=== PATIENT | female | born 1945 | race Caucasian/White ===

== ENCOUNTER → 2017-01-21 | Outpatient (CLI) | payer OTHER, BC ==
[~2017-01-21] VITALS: Ht 157.5 cm; Wt 77.1 kg
[~2017-01-21] MED LIST: ADULT LOW DOSE81 MG PO; AMBIEN 10 MG TA10 MG PO; ASPIRIN EC325 M1; ATIVAN0.5 MG PO; CHILDREN'S ASPI81 MG PO; DETROL LA4 MG PO; DETROL2 MG; EFFEXOR XR150 MG PO; EFFEXOR XR75 MG PO; HYDROCODON-ACE1 EAC7 PO; LIPITOR40 MG PO; LOPRESSOR25 PO; METOPROLOL TART25 MG PO; MOBIC7.5 M1; NITROSTAT0.4 MG SL; NORCO 10-325 T1 EACH PO; PAIN & FEVER325 MG PO; PLAVIX 75 MG TA75 M1 PO; PRILOSEC 20 MG20 MG PO; PRINIVIL10 MG PO; PRINIVIL20 MG; RANEXA500 MG PO; WELLBUTRIN SR150 MG PO; ZOLPIDEM TARTRA10 MG PO
--- NOTE | ~2017-01-21 | EKG ---
[address] [address] ELECTROCARDIOGRAM REPORT Name: LOYDA WEEKS Room #: REG CLI [facility]#: [id number] Admission: 01/21/17 Attend Phys: Manan Hall MD, FA Discharge: Date of : 49 Report #: [id number] THIS REPORT FOR: //name// [facility] Test Date: 2017-01-21 Test Time: 07:19:24 Pat Name: LOYDA WEEKS Department: Room: Gender: F Meat Service Team Member: Rohit RIVERA : 1945 Requested By: Manan Hall Order Number: [id number] MD: Petr Cooper Measurements Intervals [place] Rate: 72 P: 59 NV: 162 QRS: -4 QRSD: 117 T: 50 QT: 413 QTc: 453 Interpretive Statements Sinus rhythm No significant abnormality No previous ECG available for comparison Electronically Signed On 01-22-2017 7:48:22 CDT by Petr Cooper [email or web address] <ELECTRONICALLY SIGNED> By: Petr Cooper MD, [facility] 01/22/17 0748 0719 8 Petr Cooper MD, FACC /EPI
[2017-01-21 07:05] VITALS: BP 162/88
[2017-01-21 07:20] LABS: HEMATOCRIT 36.2 % (37.0-47.0); HEMOGLOBIN 11.9 gm/dL (12.0-15.0); MCH 30.9 pg (26.0-34.0); MCV 93.6 fL (80.0-100.0); RBC 3.87 mil/uL (4.20-5.00); RDW 14.3 % (10.5-14.5); WBC 6.5 thou/uL (4.0-11.0)
[2017-01-21 07:28] LABS: ANION GAP 12 mmol/L (7-16); BUN 19 mg/dL (7-18); CHLORIDE 104 mmol/L (98-107); CO2 24 mmol/L (21-32); GLUCOSE 102 mg/dL (74-106); POTASSIUM 3.8 mmol/L (3.5-5.1); SODIUM 140 mmol/L (136-145)
[2017-01-21 07:33] LABS: CHOLESTEROL 170 mg/dL (<200); HDL CHOLESTEROL 55 mg/dL (>40); LDL CHOLESTEROL 95 mg/dL (<100); TC:HDL 3.1 Ratio (Not establshd); TRIGLYCERIDE 103 mg/dL (<150); VLDL 21 mg/dL (<40)
== END ==
LOC: CATH 06:33 → EDSTATUS 08:05 → CATH 08:06
PROVIDERS: Internal Medicine Cardiovascular Disease
DX: Z53.8 Procedure and treatment not carried out for other reasons (principal)

== ENCOUNTER → 2017-01-22 | Outpatient (CLI) | payer OTHER, BC ==
--- NOTE | ~2017-01-22 | DSS ---
[facility] [place] [address] SHORT STAY SUMMARY Name: LOYDA WEEKS Room #: REG [place].#: [id number] Admission: 01/22/17 Attend Phys: Manan Hall MD, FA Discharge: Date of : 49 Report #: [id number] THIS REPORT FOR: //name// CC: Kulwant Hall DATE OF ADMISSION: 01/22/2017 DATA OF DISCHARGE: 01/22/2017 DISCHARGE DIAGNOSES: 1. Angina pectoris. 2. Coronary artery disease. 3. Hypertension. 4. Hyperlipidemia. CONSULTANTS: None. PROCEDURES: Left heart catheterization via the right radial artery. PRIMARY CARE PHYSICIAN: Kulwant Prescott M.D. HISTORY OF PRESENT ILLNESS: The patient is a 71-year-old white female who was brought to the outpatient department to undergo repeat cardiac catheterization. The patient initially had a stent placed in her LAD at [facility] in 2007. She then presented to [facility] in 2013 with chest pain. I placed a stent in her distal circumflex artery. Nuclear stress test in 2015 showed a small area of ischemia, although she received catheterization at that time. Recently, she complained of chest pressure. It usually occurs when she is upset. She has taken nitroglycerin, it seems to help. She also complains of dyspnea on exertion. She actually went to the emergency room recently at [facility] and was sent home. She recently had an echocardiogram and a carotid Doppler study performed in her doctor's office. I saw her in the cardiology clinic because of her recurrent angina despite medical therapy and abnormal nuclear stress test, recommended she undergo a cardiac catheterization. She recently was started on Ranexa, but continued to have chest pain. PAST MEDICAL HISTORY: Otherwise significant for hysterectomy, lap band surgery for obesity. She had a history of hypertension, hyperlipidemia, mild carotid stenosis. She had an episode of DVT following her ankle fracture in the past. She has a history of depression. MEDICATIONS: Consist of aspirin, Wellbutrin, metoprolol, lisinopril, hydrocodone, Effexor, Prilosec, Lipitor, recently started on Ranexa. ALLERGIES: SHE HAS INTOLERANCE TO NIACIN. [facility] [address] [place] [address] SHORT STAY SUMMARY Name: LOYDA WEEKS Room #: [facility].#: [id number] Admission: 01/22/17 Attend Phys: Manan Hall MD, FA Discharge: Date of : 49 Report #: [id number] PHYSICAL EXAMINATION: VITAL SIGNS: Her blood pressure was 110/60, pulse 60. HEENT: Mucous membranes moist, no carotid bruits. CHEST: Clear to auscultation. CARDIAC: Regular rate and rhythm. ABDOMEN: Soft. EXTREMITIES: No edema. SKIN: Warm, dry. NEUROLOGIC: Nonfocal. Her ECG, sinus rhythm, septal Q-waves. LABORATORY DATA: Sodium 140, potassium 3.8, creatinine 1.0 and glucose 102. Cholesterol 170, triglyceride 103, HDL 55, LDL 95. White blood cell count 6.5, hemoglobin 11.9 and platelet count 237,000. HOSPITAL COURSE: The patient was brought to the outpatient department. She had a normal ____. I then performed left heart catheterization from the right radial artery. She tolerated the procedure well. Results showed an ejection fraction of 65%. LVEDP was 18. The stent in the proximal LAD had no restenosis. The stent in the third marginal branch of the circumflex had no restenosis. However, the distal circumflex beyond the takeoff of the third marginal branch had a discrete 80% stenosis. This stenosis did not appear to be readily amenable to stenting because it involved bifurcation and was of small size. The right coronary artery had a 60% mid stenosis and a 60% stenosis of the posterior descending branch. The results were discussed with the patient. She is felt to have moderate coronary artery disease. The most severe stenosis in the distal circumflex did not appear to be readily amenable to stenting because it involved bifurcation and was a small vessel. I recommended medical therapy. She was discharged to continue her home medications include aspirin 81 mg a day, Wellbutrin 150 mg twice day, metoprolol tartrate 25 mg twice a day, lisinopril 10 mg a day, Effexor 150 mg a day, Prilosec 20 mg a day, Ranexa 500 mg twice a day. I did increase her Lipitor from 40 to 80 mg a day ____ her LDL to less than 70. She is not to do any heavy lifting for the next 3 days. I did recommend she see Dr. Prescott for routine medical care. She is scheduled to see my nurse practitioner in 2 weeks. If she continues to have angina, I would consider adding long acting nitroglycerin. I am not convinced her shortness of breath is related to her heart disease. I did recommend she maintain low-fat diet and attempt an exercise program. <ELECTRONICALLY SIGNED> By: Manan Hall MD, [facility] 01/23/17 1653 0856 1139 Manan Hall MD, [facility] /nt
--- NOTE | ~2017-01-22 | CATHLAB ---
[facility] [address] [place] [address] INVASIVE PROCEDURE REPORT Name: LOYDA WEEKS Room #: REG CL Lydia#: [id number] Admission: 01/22/17 Attend Phys: Manan Hall MD Discharge: Date of : 49 Date of Service: 01/22/17 0849 Report #: [id number] THIS REPORT FOR: //name// CC: Kulwant Hall DATE OF SERVICE: 01/22/2017 IMPRESSION: 1. Normal left ventricular chamber size and wall motion with an estimated ejection fraction 65%. 2. Coronary artery disease manifested by a stent in the proximal left anterior descending artery that had no significant restenosis. There was a stent noted in the third marginal branch of the circumflex that had no restenosis, although there was an 80% discrete narrowing of the distal circumflex just after the takeoff of the third marginal branch. The right coronary artery had a mid 60% stenosis and a 60% stenosis noted of the posterior descending branch. PROCEDURE DICTATION TITLE: Retrograde left heart catheterization, selective coronary arteriograms and left ventriculography via the right radial artery. DESCRIPTION OF PROCEDURE: The patient was brought to the cardiac catheterization lab in the fasting state and the right wrist area was cleaned with ChloraPrep and sterilely draped in usual fashion. The area was anesthetized with 1% lidocaine and a 6-Nauruan sheath was placed into the right radial artery using the percutaneous technique. The patient was given Versed 2 mg and fentanyl 25 mcg intravenously for sedation. The patient was given a cocktail of verapamil and nitroglycerin through side port of arterial sheath. A 5-Nauruan diagnostic right coronary catheter was then inserted through the arterial sheath over a guidewire to within the ascending aorta. The patient was given heparin 4000 units intravenously. This catheter was unable to cannulate the ostium of the right coronary artery due to its abnormal takeoff. Therefore, the catheter was removed and exchanged for a 5-Nauruan JL4 diagnostic catheter, which was inserted through the arterial sheath over a guidewire to the ostium of the left main artery. Several views were then taken of left coronary artery using omnipaque. This catheter was then removed and exchanged over a guidewire for a 5-Nauruan 3DRC diagnostic catheter, which was inserted through the arterial sheath over a guidewire, but also was unable to cannulate the ostium. Therefore, the catheter was removed and exchanged for a 5-Nauruan right vein graft diagnostic catheter, which was inserted through the arterial sheath over a guidewire to the ostium of the right coronary artery. Several views were then taken of the right coronary artery using omnipaque. This catheter was then removed and exchanged over a guidewire for a 5-Nauruan pigtail catheter, which was inserted through the arterial sheath over a guidewire to within the left ventricle and the guidewire removed. Left ventricular end diastolic pressures [facility] [address] [place] [address] INVASIVE PROCEDURE REPORT Name: LOYDA WEEKS Room #: REG Lydia#: [id number] Admission: 01/22/17 Attend Phys: Manan Hall MD Discharge: Date of : 49 Date of Service: 01/22/17 0849 Report #: [id number] then recorded. Left ventricular cineangiograms then accomplished in the 35-degree ENGLISH position using 35 mL of Omnipaque at 12 mL per second and 750 PSI. Post-angiographic pressures were then recorded and the pigtail catheter was then pulled back from left ventricle to the ascending aorta using continued pressure recording. The pigtail catheter was then removed over a guidewire. The patient was given another cocktail of verapamil and nitroglycerin through side port of the arterial sheath. The sheath was removed and hemostasis achieved by applying a Vasc band. The patient left the cardiac catheterization lab in stable condition. RESULTS: 1. LEFT VENTRICULOGRAPHY: There was normal left ventricular chamber size and wall motion with an estimated ejection fraction of 65%. There appeared to be no significant mitral regurgitation. 2. HEMODYNAMICS: Left ventricular end diastolic pressure was 18 mmHg. There was no gradient across the aortic valve. 3. CORONARY ARTERIOGRAMS: The left main artery had no significant stenosis. The left anterior descending artery was noted to give off a small first diagonal branch. Proximal to this small first diagonal branch, there was a discrete concentric 30% narrowing in the proximal left anterior descending artery. After the takeoff of the small first diagonal branch, there was noted to be a medium sized second diagonal branch. takeoff of the second diagonal branch, there appeared to be a long metal stent that started in the proximal left anterior descending artery. Distally, the LAD appeared to have a minimal amount of systolic narrowing consistent with a myocardial bridge. The circumflex artery was a nondominant vessel. It was noted to give off a small first marginal branch. There was then noted to be a discrete concentric 50% stenosis in the mid circumflex prior to the takeoff of a small second marginal branch. There was then a large third marginal branch that appeared to have a proximal stent with no significant restenosis. After the takeoff of the third marginal branch, the distal circumflex was noted to give off a medium sized posterolateral branch. There was an 80% discrete stenosis noted just after the takeoff of this third marginal branch leading to a bifurcation stenosis. Distally, there was a 60% narrowing in the posterolateral branch. The right coronary artery was the dominant vessel given off the posterior descending and AV node branch. The right coronary artery was noted to have a somewhat anomalous takeoff from the right coronary cusp superior and anterior within the cusp. There was noted to be mild calcification of the epicardial coronary artery. After the conus branch, there was a somewhat eccentric discrete 50% stenosis in the proximal right coronary artery. Just prior to the acute margin of the vessel, there is a discrete eccentric 60% narrowing in the mid right coronary artery. There was a large posterior descending branch [address] [address] INVASIVE PROCEDURE REPORT Name: LOYDA WEEKS Room #: REG CL [facility]#: [id number] Admission: 01/22/17 Attend Phys: Manan Hall MD Discharge: Date of : 49 Date of Service: 01/22/17 0849 Report #: [id number] arising from the distal right coronary artery that had a tubular mid 60% stenosis. <ELECTRONICALLY SIGNED> By: Manan Hall MD, [facility] 01/23/17 1652 0849 1531 Manan Hall MD, [facility] /nt
== END ==
LOC: CATH 06:29
DX: I25.10 Atherosclerotic heart disease of native coronary artery without angina pectoris (principal); I10 Essential (primary) hypertension; E78.5 Hyperlipidemia, unspecified; E66.9 Obesity, unspecified; F41.8 Other specified anxiety disorders

== ENCOUNTER 2021-01-09 12:56 | Inpatient (IN) | payer OTHER, BC ==
[~2021-01-09] VITALS: Ht 157.5 cm; Wt 82.1 kg
[~2021-01-09 12:56] MED LIST changes: -LOPRESSOR25 PO; +MELATONIN3 M1 PO; +PLAVIX 75 MG TA75 MG PO; +VITAMIN B122500 MC1 PO; +VITAMIN D325 MC3 PO
[2021-01-09 15:36] VITALS: BP 128/67
[2021-01-09 21:10] VITALS: BP 104/61
[2021-01-10 00:50] VITALS: BP 99/55
--- NOTE | 2021-01-10 05:00 | NUR ---
ASSUME CARE 1900. PT/VITAlS STABLE. DENIES ANY PAIN. GOOD TOLERANCE TO ACTIVITY. SR ON MONITOR. ASSESSMENT CHARTED. PROGRESSING MODERATELY WITH POC. NO DISTRESS NOTED THROUGH THE NIGHT. NPO SINCE MIDNIGHT FOR POSSIBLE CARDIAC CATHERIZATION TODAY AND POSSIBLE TRANSCAROTID CARTERY REVASCULARIZATION (TICAR) TOMORROW. WILL CONTINUE TO MONITRO AND FOLLOW WITH POC
[2021-01-10 05:30] VITALS: BP 130/63
--- NOTE | 2021-01-10 08:04 | NUR ---
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
[2021-01-10 12:35] VITALS: BP 111/66
[2021-01-10 13:45] VITALS: BP 128/67
--- NOTE | 2021-01-10 14:35 | CATHLAB ---
[facility] [place] [address] INVASIVE PROCEDURE REPORT Name: LOYDA WEEKS Room #: 207-P ADM IN M.R.#: [id number] Admission: 01/09/21 Attend Phys: Chary Bang Discharge: Date of : 49 Report #: [id number] THIS REPORT FOR: cc: Kulwant Prescott MD, Anthony MD Park, Jin S. MD ~ APPROVED REPORT Study performed: 01/10/2021 10:57:02 Patient Details Patient Status: In-Patient Room #: The patient is a 75 year-old female Event Personnel Ruel Holland Hogshead Dumper, Oliva Leon RN RN, Ruth Kapoor RTR, HARLEEN Scrub, Lina Romero Monitor, Antionette Marie RTR Scrub, Evangelina Botello RTR Monitor Procedures Performed Left Heart Cath w/or w/o Coronaries [id number] [facility] Hemostasis w/ Mynx Indication Dyspnea, Pre-op clearance Risk Factors Cerebrovascular DiseasePeripheral Vascular Disease, Hypercholesterolemia, Coronary Artery DiseaseHypertension Previous Procedures/Diagnoses Previous CVA Procedure Narrative A 5fr Bright Tip sheath was inserted into the RFA^. Coronary angiography was performed using coronary diagnostic catheters. The right coronary system was accessed and visualized with a 5FR AR MOD #[id number] catheter. The left coronary system was accessed and visualized with a 5FR JL5 #[id number] catheter. The left ventricle was accessed and visualized with a 5FR PIG 145 ANGLED #[id number] catheter. Left ventriculogram was performed in 30 degree projection. Pre-demployment femoral angiogram was performed . The patient tolerated the procedure well and there were no complications associated with the procedure. There was no hematoma. [facility] [email or web address] [address] INVASIVE PROCEDURE REPORT Name: LOYDA WEEKS Room #: 207-P [facility] IN [facility].#: [id number] Admission: 01/09/21 Attend Phys: Chary Decker Discharge: Date of : 49 Report #: [id number] Intraoperative Conscious Sedation Sedation start time: 1006 Case end Time: 1213 Fentanyl 100 mcg Versed 2 mg Fluoro time/doses, sedation times/amount, and contrast total are all from a combo case with Dr. Holland Fluoro Time: 12.80 minutes Dose: DAP 54276.30 cGycm2 2540 mGy Contrast Type and Amount: Omnipaque 296 ml Coronary Angiography The patient's coronary anatomy is right dominant. Diagnostic Cath Left Main The left main artery is a large-caliber vessel, appears angiographically normal. LAD The LAD is a moderate-sized caliber vessel, traverses the anterior wall and wraps around the apex. There is a stent in the proximal segment, patent with mild restenosis. Diagonal 1 This is a small to moderate-sized caliber vessel, patent with no flow-limiting lesions. Circumflex The left circumflex artery is a moderate-sized caliber vessel with mild disease proximally, 30%. OM1 There is a patent stent in the proximal segment, with mild restenosis. OM2 There is a moderate stenosis at the ostium, 40%. Right Coronary The RCA is a dominant vessel with mild disease proximally. There is a moderate stenosis in the midsegment, 40%. R PDA This is a moderate-sized caliber vessel, patent with no flow-limiting lesions. RPLV This is a moderate-sized caliber vessel, patent with no flow-limiting lesions. Left Ventriculography The left ventricle is normal in size with normal contractility. Hemodynamics The aortic pressure is 138/62 mmHg with a mean of 94 mmHg. The left ventricular pressure is 139/11 mmHg with a mean of mmHg. The left ventricular end diastolic pressure is 17 mmHg. Conclusion 1. There is a patent stent in the proximal LAD with mild [facility] [address] [place] [address] INVASIVE PROCEDURE REPORT Name: LOYDA WEEKS Room #: 207-P [facility] IN .R.#: [id number] Admission: 01/09/21 Attend Phys: Chary Decker Discharge: Date of : 49 Report #: [id number] restenosis. 2. There is a patent stent in the first OM artery with mild restenosis. 3. There is moderate disease in the second OM artery and mid RCA segment. 4. There is normal LV systolic function. 5. Recommend aggressive risk factor management. <ELECTRONICALLY SIGNED> By: Ruel Holland MD 01/10/21 1435 143 143 Ruel Holland MD /INF
--- NOTE | 2021-01-10 15:30 | NUR ---
PT DISCHARGING TODAY BACK TO [facility] FAXED DC ORDERS/SUMMARY TO FACILITY SPOKE WITH LUIZA HE RECEIVED ORDERS. TRIED ARRANGING TRANSPORT STRETCHER VAN WITH [facility] BUT THEY COULD NOT PERISHABLE FREIGHT INSPECTOR PT TIL [phone] THIS EVENING, I NOTIFIED LUIZA (JOHNSON) AT [facility] AND HE SAID HE COULD NOT ACCEPT PT AT THAT TIME THAT THERE WOULD NOT BE ANYONE AT THE DOOR TO LET PT IN. I ASKED HIM TO CLARIFY WHAT IS THE LATEST TIME HE COULD ACCEPT AND HE SAID 1500. I CALLED [facility] AND THEY COULD NOT PICK PT UP TIL 1730. SO, I SPOKE WITH OUR MGR MAYNOR SHE SAID TO CALL RENAE ([facility]) AND SEE IF SHE COULD WORK SOMETHING OUT. SHE CALLED BACK AND SAID THEIR STRETCHER VAN WILL BE HERE IN 30 MINUTES THAT WOULD BE 1450. I NOTIFIED LUIZA AT [facility] AND HE SAID THAT IS FINE THEY WOULD TAKE PT BACK AT THAT TIME. PT'S GUARDIAN AT PA'S OFFICE NOTIFIED AND IN AGREEMENT WITH DC PLAN AND FAXED DC ORDERS/SUMMARY TO GUARDIAN RECEIVED CONFIRMATION. UNIT NOTIFIED AND CHART COPY PER US. RN TO CALL REPORT. THAT THEY COULD TAKE PT THEN.
[2021-01-10 15:37] VITALS: BP 142/79
[2021-01-10 16:13] LABS: HEMATOCRIT 33.4 % (37.0-47.0); HEMOGLOBIN 10.8 gm/dL (12.0-15.0); MCH 30.7 pg (26.0-34.0); MCHC 32.4 g/dL (28.0-37.0); MCV 94.6 fL (80.0-100.0); RBC 3.53 mil/uL (4.20-5.00); WBC 5.9 thou/uL (4.0-11.0)
[2021-01-10 16:24] LABS: CALCIUM 8.7 mg/dL (8.5-10.1); POTASSIUM 3.9 mmol/L (3.5-5.1)
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
--- NOTE | 2021-01-10 17:03 | NUR ---
PT RESIDES AT [facility] FAXED A CLINICAL UPDATE RECEIVED CONFIRMATION ALSO [facility] ON SERVICE WITH THEM PRIOR TO ADM.
[2021-01-10 20:30] VITALS: BP 124/66
[2021-01-11 00:30] VITALS: BP 107/52
[2021-01-11 04:45] VITALS: BP 116/67
[2021-01-11 05:31] LABS: HEMOGLOBIN 10.4 gm/dL (12.0-15.0); MCH 30.6 pg (26.0-34.0); MCHC 32.5 g/dL (28.0-37.0); MCV 94.3 fL (80.0-100.0); RBC 3.39 mil/uL (4.20-5.00); RDW 13.8 % (10.5-14.5); WBC 6.1 thou/uL (4.0-11.0)
[2021-01-11 05:41] LABS: CALCIUM 8.6 mg/dL (8.5-10.1); POTASSIUM 4.1 mmol/L (3.5-5.1)
[2021-01-11 07:59] VITALS: BP 135/68
[2021-01-11 12:01] VITALS: BP 103/76
[2021-01-11] MEDS ORDERED: VOLTAREN GEL 1100 G1 TOP (12:39)
--- NOTE | 2021-01-11 14:05 | NUR ---
ASSUMED CARE SHIFT CHANGE. ASSESSMENTS CHARTED.MEDS GIVEN PER MAR. VSS DENIES PAIN. UP SBA TOLERATING WELL. DC ORDERS TO REHAB ACKNOWLEDGED/IMPLEMENTED. TELE REMOVED. REPORT TO EMILY ON 5N. PT LEFT UNIT WITH ALL BELONGINGS TO 513.
--- NOTE | 2021-01-11 14:16 | NUR ---
Pt accepted for 5N acute rehab stay. She is agreeable. Her fri/dpoa Fausto is also agreeable and notified of her room number. Dc plan after rehab is to return to [facility] [phone]. Model Maker updated Berta their director as well at cell phone #[phone]. [facility] [place] and will need to be updated when dc date is known. The pt's dpoa notes that her rent is paid for December and he had advised the pt if she is unhappy at this nursing home and they need to look for another one; he will need to give them 30 day notice. He has canceled her covid vaccine appt but will reschedule it once she is back at the [facility]. [facility] will need a updated covid test at dc. 5N cm to follow for resumption of hh [place].
--- NOTE | 2021-01-12 12:59 | HC ---
[facility] [place] [address] CONSULTATION Name: LOYDA WEEKS Room #: 207-P [facility] IN M.R.#: [id number] Admission: 01/09/21 Attend Phys: Chary aBng Discharge: 01/11/21 Date of : 49 Report #: [id number] THIS REPORT FOR: cc: Kulwant Prescott MD,Kulwant Ortez,Estuardo Verduzco MD ~ DATE OF SERVICE: 01/09/2021 HISTORY OF PRESENT ILLNESS: The patient is a 75-year-old admitted in transfer from [facility]. The patient has a history of left temporal stroke. The patient was in the rehabilitation unit when she had multiple problems including difficulty swallowing, expressive aphasia. The Neurology note states that the patient had left-sided weakness, but the patient does not volunteer this. The patient also perceived that she was not being adequately attended to at the rehabilitation unit and either voluntarily or as a result of a neurologic deficit was lying on the floor of her bathroom until she was taken to the hospital. At [place], CT angiogram was done, which showed a right carotid artery stenosis. The patient seems to have been on combination of aspirin and Plavix when this all happened. The patient states that she is largely back to normal at this stage, but she expresses displeasure regarding the situation at the [facility] where she was staying post-stroke. PAST MEDICAL HISTORY: Significant for stroke as mentioned, carotid artery disease. The patient has a history of coronary stents in the past, hypertension, elevated cholesterol. FAMILY HISTORY: Reveals that the patient had a son who had a heart transplantation, who has since . The patient's is also . SOCIAL HISTORY: The patient lives alone. She is a never smoker. REVIEW OF SYSTEMS: GENERAL: The patient denies fever, weight change. EYES: Denies visual change. HEENT: Denies headache, hearing problems, nasal discharge. RESPIRATORY: No recent shortness of breath or cough. CARDIAC: Denies angina. Denies palpitations. GASTROINTESTINAL: Denies nausea, vomiting, diarrhea. GENITOURINARY: Denies urgency, frequency, blood. MUSCULOSKELETAL: Has complaints of some degenerative joint disease. NEUROLOGIC: As mentioned, recent stroke from which the patient was recovering. Also the recent history of swallowing difficulty and speaking difficulty at the [address] [address] CONSULTATION Name: LOYDA WEEKS Room #: [address] [place] [address] IN M.R.#: [id number] Admission: 01/09/21 Attend Phys: Chary Bang Discharge: 01/11/21 Date of : 49 Report #: [id number] center. ENDOCRINE: No goiter, no tremor. HEMATOLOGIC: No bruisability or bleeding. PSYCHIATRIC: Denies depression or anxiety. PHYSICAL EXAMINATION: VITAL SIGNS: Temperature 36.6, heart rate 67, blood pressure 128/67, pulse ox 94 on room air. HEENT: No scleral icterus, no arcus. NECK: I hear no bruit. CHEST: Clear to auscultation. HEART: Rhythm regular. ABDOMEN: Soft, protuberant. EXTREMITIES: No clubbing, cyanosis. Trace edema distally. SKIN: No rash or infection. MUSCULOSKELETAL: No bone or joint asymmetry or deformity. NEUROLOGIC: No obvious neurologic deficit. The patient is sitting in bed. PSYCHIATRIC: Oriented, somewhat agitated regarding her distressing stay at the rehab center, but grateful to be at this institution. I reviewed the CT scan in light of the history of stroke and with respect to her recent neurologic problems. The stroke shown on the MRI is a left temporal stroke, but the more severe lesion appears to be in the right internal carotid. It is not clear to me if the patient's symptoms correlate with this. In any event, I think this elderly, somewhat weak woman would be a good candidate for transcarotid arterial revascularization approach if this is appropriate anatomically and pursuit of this, we will obtain a formal arteriogram tomorrow to map the anatomy. If high-grade lesion is seen, then we will try to prepare the patient for surgery Friday. Statin has been prescribed and aspirin and Plavix will be continued. It is a privilege to participate in this challenging patient's care. Thank you for the consult. <ELECTRONICALLY SIGNED> By: Estuardo Ortez MD 01/12/21 1259 1950 09 Estuardo Ortez MD /nt
== END 2021-01-11 14:08 | DRG 64 ==
LOC: 2N 12:56
PROVIDERS: Internal Medicine Cardiovascular Disease; Nurse Practitioner; ADMIT Hospitalist; ATTEND Hospitalist
PROC: B4101ZZ Fluoroscopy of Abdominal Aorta using Low Osmolar Contrast (ICD-10-PCS; principal; 2021-01-10)
PROC: 4A023N7 Measurement of Cardiac Sampling and Pressure, Left Heart, Percutaneous Approach (ICD-10-PCS; principal; 2021-01-10)
PROC: B2151ZZ Fluoroscopy of Left Heart using Low Osmolar Contrast (ICD-10-PCS; principal; 2021-01-10)
PROC: B4181ZZ Fluoroscopy of Bilateral Renal Arteries using Low Osmolar Contrast (ICD-10-PCS; principal; 2021-01-10)
PROC: B2111ZZ Fluoroscopy of Multiple Coronary Arteries using Low Osmolar Contrast (ICD-10-PCS; principal; 2021-01-10)
PROC: B41F1ZZ Fluoroscopy of Right Lower Extremity Arteries using Low Osmolar Contrast (ICD-10-PCS; principal; 2021-01-10)
PROC: B3131ZZ Fluoroscopy of Right Common Carotid Artery using Low Osmolar Contrast (ICD-10-PCS; principal; 2021-01-10)
PROC: B41G1ZZ Fluoroscopy of Left Lower Extremity Arteries using Low Osmolar Contrast (ICD-10-PCS; principal; 2021-01-10)
PROC: B31F1ZZ Fluoroscopy of Left Vertebral Artery using Low Osmolar Contrast (ICD-10-PCS; principal; 2021-01-10)
DX: I63.89 Other cerebral infarction (principal); G93.41 Metabolic encephalopathy; T82.855A Stenosis of coronary artery stent, initial encounter; I65.21 Occlusion and stenosis of right carotid artery; I25.10 Atherosclerotic heart disease of native coronary artery without angina pectoris; Z20.822 Contact with and (suspected) exposure to COVID-19; F32.9 Major depressive disorder, single episode, unspecified; G47.00 Insomnia, unspecified; K21.9 Gastro-esophageal reflux disease without esophagitis; M19.90 Unspecified osteoarthritis, unspecified site; F41.9 Anxiety disorder, unspecified; I10 Essential (primary) hypertension; R13.10 Dysphagia, unspecified; E66.01 Morbid (severe) obesity due to excess calories; K22.2 Esophageal obstruction; R53.81 Other malaise; E78.5 Hyperlipidemia, unspecified; Z95.5 Presence of coronary angioplasty implant and graft; Z88.1 Allergy status to other antibiotic agents; Z90.710 Acquired absence of both cervix and uterus; Z86.718 Personal history of other venous thrombosis and embolism; Z68.33 Body mass index [BMI] 33.0-33.9, adult; Y83.8 Other surgical procedures as the cause of abnormal reaction of the patient, or of later complication, without mention of misadventure at the time of the procedure; Y92.89 Other specified places as the place of occurrence of the external cause
CPT/HCPCS: 10081

== ENCOUNTER 2021-01-11 11:46 | Inpatient (IN) | payer OTHER, BC ==
[~2021-01-11] VITALS: Ht 157.5 cm; Wt 72.6 kg
[2021-01-11] MEDS ORDERED: VOLTAREN GEL 1100 G1 TOP (12:39)
--- NOTE | 2021-01-11 14:24 | NUR ---
[facility] WAS UPDATED THAT PATIENT WILL RECEIVE REHABILITATION FOR APPROXIMATELY 1 WEEK THAN DISCHARGE BACK TO HER HOME AT [facility]. CONFIRMED WITH CLARA/HI THAT PATIENT RECEIVED SERVICES WITH [facility] BEFORE BEING ADMITTED TO THE HOSPITAL. [facility] P [phone]; FAX [phone]; QING AND LIAVITO
[2021-01-11 14:55] VITALS: BP 130/82
--- NOTE | 2021-01-11 18:53 | NUR ---
PATIENT CAME ONTO UNIT ON A W/C. CAME FROM CCU. HX AND DX OF CVA AND CORATID STENOSIS. ALERT AND ORIENTED TO PERSON, PLACE, TIME AND SITUATION. SOME CONFUSION AND FORGETFULLNESS NOTED. EXPRESSIVE APHASIA NOTED. TRANSFERS AND AMBULATES WITH STAND BY ASSIST. GENERALIZED WEAKNESS NOTED. NO SIGNNIFICANT PHYSICAL IMPAIRMENT NOTED. FULL ADMISSION ASSESSEMENT PERFORMED. UPCOMING SHIFT WILL BE REPORTED ON CURRENT STATUS.
[2021-01-11 19:40] VITALS: BP 155/88
[2021-01-11 22:30] VITALS: BP 138/82
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
[2021-01-12 05:00] LABS: HEMATOCRIT 32.3 % (37.0-47.0); HEMOGLOBIN 10.6 gm/dL (12.0-15.0); MCH 30.6 pg (26.0-34.0); MCHC 32.7 g/dL (28.0-37.0); MCV 93.6 fL (80.0-100.0); RBC 3.46 mil/uL (4.20-5.00); RDW 13.5 % (10.5-14.5); WBC 5.5 thou/uL (4.0-11.0)
[2021-01-12 05:13] LABS: CALCIUM 9.2 mg/dL (8.5-10.1); POTASSIUM 3.7 mmol/L (3.5-5.1)
[2021-01-12 05:38] LABS: FOLIC ACID 11.1 ng/mL (8.6-58.9)
[2021-01-12 07:15] VITALS: BP 127/60
[2021-01-12 09:05] LABS: URINE BILIRUBIN NEGATIVE (Negative); URINE BLOOD NEGATIVE (Negative); URINE CLARITY CLEAR; URINE COLOR YELLOW; URINE GLUCOSE-RANDOM* NEGATIVE (Negative); URINE KETONES NEGATIVE (Negative); URINE LEUKOCYTES-REFLEX NEGATIVE (Negative); URINE NITRITE-REFLEX NEGATIVE (Negative); URINE PROTEIN (DIPSTICK) NEGATIVE (Negative); URINE UROBILINOGEN 0.2 E.U./dl (0.2-1.0)
--- NOTE | 2021-01-12 15:00 | NUR ---
chart review, cm notified by jj nurse academic affairs manager notified cm that pt, friend antonio, wanted to talk sound messy. cm called pt in room, intro to cm and dcp, team meeting. education and active listen via phone call. discussed dcp was to go back to [facility], independent prior to hospital. godfrey and antonio not sure about that, they asked about e-mail sent with snf location. cm education that was inplace of going to acute rehab, that would try get her back to her [facility]. cm education that would only be calling 1 contact and that is jeison " that is fine he is prim contact, thank you"/ antonio. had hh in past with karlene posadas.
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
--- NOTE | 2021-01-12 16:54 | NUR ---
ASSUMED CARE AT 0700. PT IS A&OX4, BUT IS EXHIBITING SOME COFUSION AND FORGETFULNESS SHE TENDS TO REPAET HERSELF. EXHIBITING ANXIOUS EMOTIONS THROUGHOUT SHIFT. PT IS CONTINUOUSLY REASSURED THAT SHE IS SAFE. PT PREFFERED TO TAKE MEDICATION WHOLE ON AT A TIME WITH PUDDING, AND WAS ABLE TO SWALLOW W/O DIFFICULTY. NEW ORDERS FOR GABAPENTTIN AND TRAZADONE RECEIVED FROM DR. NAVARRO POST PSYCH CONSULT. FIRST DOSE FOR BOTH WILL BE ADMINISTERED TODAY.
[2021-01-12 20:00] VITALS: BP 148/72
[2021-01-13 00:06] LABS: GLYCOHEMOGLOBIN (HGB A1C) 6.1 % (4.8-5.6)
--- NOTE | 2021-01-13 00:42 | NUR ---
PT ASSESSMENT COMPLETED AND VSS. MEDS GIVEN ORDERED AND WELL TOLERATED. FALL PRECAUTIONS IN PLACE. UP TO THE BATHROOM WITH ASST/GAIT/WALKER. PT HUNGRY AND SEVERAL SNACKS PROVIDED. PT ANXIOUS AND WANTING TO TALK ABOUT HER FEELINGS. PROVIDED MUCH EMOTIONAL SUPPORT. MEDICATION GIVEN ORDERED. PT SLEEPING WELL AT THIS TIME. WILL CONTINUE TO MONITOR FREQUENTLY.
[2021-01-13 08:00] VITALS: BP 135/67
--- NOTE | 2021-01-13 08:55 | NUR ---
PT SITTING UP IN BED, SEEMS HAPPY THIS AM. PT TOOK MEDS WITH THIN WATER. PT STATED HOW NICE THE NURSES ARE HERE. PT STATED SHE IS GOING HOME SOON. PT STATED SHE DID HAVE A PROCEDURE FOR HER HEART. PT VERY TALKATIVE TO STAFF.
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
--- NOTE | 2021-01-13 18:10 | NUR ---
PT STATED SHE WAS AT [facility] AND IT WAS HORRIBLE. SHE DID SAY SHE MIGHT HAVE TO GO BACK, SHE SAID THAT SHE PAYS $1000.00 PER MONTH. SHE WANTED TO FIND AN APPT. FOR $600.00.
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
[2021-01-13 20:00] VITALS: BP 126/81
--- NOTE | 2021-01-14 02:13 | NUR ---
IMPULSIVELY GET UP TO GET TO THE TOILET, FORGETS TO CALL, AND HATES TO BE REMINDED BY THE BED ALARM. AWAKE AT 0130 WITH LEFT KNEE PAIN FROM SLEEPING ON IT WRONG SINCE 0; RESOLVED WITH ICE BAG DRAPED OVER IT FOR 2O MINUTES. STILL ANNOYED BY HER FORGETFULNESS OF NAMES, MUMBERS, BRAND NAME OF HER CAR. IS HOPING TO FIND A WAY TO GO BACK TO HER OWN HOME.
[2021-01-14 07:15] VITALS: BP 122/66
--- NOTE | 2021-01-14 07:41 | NUR ---
PLACED DICLOFENAC CREAM TO LEFT KNEE FOR PAIN. PT STATED SHE WORKED TOO HARD YESTERDAY AND THAT HER LEFT KNEE IS SHOT. SHE SAID THAT LEFT KNEE WAS THE GOOD KNEE, BUT BEARED WT SO MUCH ON IT TO GUARD THE RT KNEE THAT SHE SAID IT IS SHOT NOW.
--- NOTE | 2021-01-14 12:51 | NUR ---
PLACED DICLOFENAC TO LEFT KNEE DUE TO PAIN. TOLD KODI RAY THAT PT DIDN'T HAVE ANY TYLENOL FOR PAIN.
--- NOTE | 2021-01-14 13:31 | NUR ---
DR. MCMILLAN AWARE OF D/C ELIQUIS AND REMAINING ON ASA/PLAVIX PER IR REC. DR. MCMILLAN SEEING PT AND SHE IS CRYING AND PLEADING THAT SHE JUST WANTS TO BE ABLE TO LIVE IN HER OWN PLACE AND NOT GO BACK TO FACILITY SHE WAS FROM.
--- NOTE | 2021-01-14 16:38 | NUR ---
ADM TYLENOL 500MG 2 TABS PO FOR PAIN TO LEFT KNEE OF 7 ON 1-[address] MCMILLAN STARTED EFFEXOR 37.5MG TO HELP WITH ANXIETY AND RESTLESSNESS.
--- NOTE | 2021-01-14 16:43 | NUR ---
PT TEARFUL AND STATED SHE WANTED TO GO BACK TO HER APT. AND WANT TO BE ABLE TO DRIVE. PT HAS TALKED ABOUT SHE DIDN'T WANT TO GO TO THE FACILITY THAT SHE CAME FROM. PT STATED SHE HAD A STROKE AND HAVE TROUBLE WITH SAYING WHAT SHE WANTS TO SAY. SHE SAID WHEN SHE WAS IN THE APT SHE DID LET SOME MEDS GO AND SHE HAD TROUBLE SWALLOWING. SHE GETS UPSET EASILY. PT STATED SHE HAS HAD PROBLEMS SINCE HER .
[2021-01-14 20:00] VITALS: BP 131/81
--- NOTE | 2021-01-15 01:59 | NUR ---
CONTINUES TO FOCUS ON GETTING BACK TO HER APARTMENT AND WANTS TO KEEP HER CAR. UNHAPPY THAT SHE HAS TROUBLE REMEMBERING AND REMEMBERING WORDS. KNEE PAIN THAT SHE HAD THIS MORNING IS NO LONGER AN ISSUE. ASKED FOR PILLS AND SLEEPING PILLS EARLY AND HAS BEEN SLEEPING SINCE 2129, HENCE SECOND TRAZADONE UNNECESSARY.
[2021-01-15 07:15] VITALS: BP 127/67
--- NOTE | 2021-01-15 11:45 | NUR ---
cm notified by cm team that contact antonio left message. cm checked with godfrey to see who prim contact, " jeison"/ godfrey. while on phone with her she stated " i will not go back there, i was sick and they would not help me. i am going to call my medical practice assistant friend and see what they say. want my car back and drive when i am ready. moved all my stuff to that apartment and i don't want to go back. staff wont help me when i was sick for 2 days. i have had allot of loss. lost my 2 sons and now my "/godfrey. active listen and support. re-education that if wanting a different JAIL then jeison needs to be looking now and she will mostly need drive eval class rt cva and her vision loss " oh i wont drive now but when its ok, i can"/godfrey. cont with education. will cont following as needed for dc needs. poor insight into wants is safe and not safe at this time.
--- NOTE | 2021-01-15 16:27 | NUR ---
PT ALERT AND ORIENTED TIMES FOUR. VSS. PT DENIES PAIN/SOA. PT TOLERATES MEDS AND MEALS. PT WORKED VERY WELL WITH PT/OT TODAY. PT FRIEND AT BEDSIDE THIS AFTERNOON. PT PROGRESSING TOWRADS POC GOALS.
[2021-01-15 19:54] VITALS: BP 132/82
--- NOTE | 2021-01-16 02:20 | NUR ---
ASSUMED PT CARE AT CHANGE OF SHIFT, ASSESSMENTS CHARTED, VSS, DENIES PAIN OR SOB, TRAZODONE X2 FOR SLEEP, UP TO THE BATHROOM STBY ASSIST, NO NEEDS AT THIS TIME WILL CONTINUE TO MONITOR, PROGRESSING WELL TOWARDS DISCHARGE
[2021-01-16 07:56] VITALS: BP 128/78
--- NOTE | 2021-01-16 08:30 | NUR ---
WENT TO ROOM AND PT SITTING UP IN CHAIR. PT HAS HER MAKE-UP ON AND HER HAIR CURLED. PT WANTING HAIR SPRAY DUE TO HER CURLS WITH COME OUT. PT BEGGING STAFF OR ANYONE FOR HAIR SPRAY. PT SEEMS PLEASANT AND SMILING.
--- NOTE | 2021-01-16 13:48 | NUR ---
team recommendation: sever memory/cog. dc back to [facility] home. will need covid test, and scotty will need to reassess for mcc level. home health for speech, sw and nursing dc on 01/18.
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
[2021-01-16 19:55] VITALS: BP 128/63
--- NOTE | 2021-01-17 06:39 | NUR ---
ASSUMED CARE OF PT AT 1930 AT 01/16/21. IS ON ROOM AIR. DENIES PAIN. IS STABLE IS A&O TO SELF, SITUATION, & PLACE. IS FORGETFUL AT TIMES. PT EXPRESSED CONCERNS REGARDING DISCHARGING BACK TO FACILITY. THIS NURSE USED THERAPUETIC COMMUNICATION & ENCOURAGED THE PT TO SPEAK WITH THE PORT CAPTAIN HERE TODAY. PT IS UP WITH TOUCH ASSIST, GB TO BATHROOM. FALL PRECAUTIONS & HOURLY ROUNDING CONTINUED THIS SHIFT. LABS & VITALS REVIEWED. PT IS SLEEPING. CALL LIGHT WITHIN REACH. IS ABLE TO REPOSITION SELF. IN BED.
--- NOTE | 2021-01-17 08:30 | NUR ---
ASSUMED CARE AT 0700. PATIENT IS ALERT AND ORIENTED X4, BUT FORGETFUL. PATIENT HARLEY'S, HAIR OR BEAUTY SALON ASSISTANT ARE EQUAL. UP IN THE CHAIR FOR MEALS. LUNGS ARE CLEAR AND DEMINISHED. ABD IS SOFT WITH BSX4. UP TO THE BATHROOM WITH ASSIST OF 1 STAFF. COVID 19 TEST SENT TO LAB. FALL AND SAFETY PROTOCOLS IN PLACE. DENIES PAIN AT THIS TIME. WILL CONTINUE TO MONITER.
[2021-01-17 09:00] VITALS: BP 137/61
--- NOTE | 2021-01-17 09:53 | NUR ---
cm visited with tatyanageronimo [facility]essavincent [facility], admit will call cm back, should be able to accept her back for [facility], has to be able to get self to bathroom and dress self. all medication are managed at facilty and assist with showers if needed. enoc spoke with jeison he will pick her up tomorrow on around noon. will cont following as needed for dc needs. fax number for neris almaraz, , phone# [phone].
[2021-01-17 19:36] VITALS: BP 114/71
--- NOTE | 2021-01-18 02:49 | NUR ---
ASSESSED AT START OF SHIFT, PT IS MOD I IN ROOM. EVENING MEDS GIVEN WITH WATER. PT A&OX3. UP TO THE BATHROOM BYSELF. DENIES PAIN, N/V. ANTICIPATING D/C TOMORROW NO FURTHER SIGNS OF DISCOMFORT. WILL CONT TO MONITOR.
[2021-01-18 05:38] LABS: CALCIUM 8.8 mg/dL (8.5-10.1); CREATININE 0.9 mg/dL (0.6-1.0); MAGNESIUM 1.8 mg/dL (1.8-2.4); POTASSIUM 3.9 mmol/L (3.5-5.1)
[2021-01-18 05:39] LABS: ABSOLUTE NEUTROPHILS 2.4 thou/uL (1.4-8.2); BASOPHILS 0.5 % (0.0-2.0); EOSINOPHILS 4.6 % (0.0-3.0); HEMATOCRIT 30.2 % (37.0-47.0); LYMPHOCYTES 33.8 % (24.0-44.0); MCH 30.7 pg (26.0-34.0); MCV 93.2 fL (80.0-100.0); MONOCYTES 9.5 % (1.0-8.0); PLATELET COUNT 228 thou/uL (150-400); POLYS 51.6 % (36.0-66.0); RBC 3.24 mil/uL (4.20-5.00); RDW 13.6 % (10.5-14.5); WBC 4.7 thou/uL (4.0-11.0)
[2021-01-18 07:02] VITALS: BP 114/71
[2021-01-18 08:00] VITALS: BP 134/75
[2021-01-18 08:40] VITALS: BP 134/65
[2021-01-18] MEDS ORDERED: NORCO 10-325 T1 EACH PO (09:32)
[2021-01-18] MEDS ORDERED: TRAZODONE HCL50 MG PO (09:32)
[2021-01-18] MEDS ORDERED: EFFEXOR XR37.5 MG PO (09:32)
[2021-01-18] MEDS ORDERED: GABAPENTIN 100100 MG PO (09:32)
--- NOTE | 2021-01-18 10:30 | NUR ---
PT ALERT AND ORIENTED TIMES THREE WITH PERIODS OF CONFUSION. VSS. PT TOLERATES MEDS AND MEALS. PT UP IN ROOM WITH STEADY GAIT. PLANS TO DISCHARGE TODAY AT 12PM BACK TO [place]. REPORT CALLED TO NURSE CARMICHAEL. WILL CONTINUE TO MONITOR.
--- NOTE | 2021-01-20 18:06 | HC ---
[facility] [place] [address] CONSULTATION Name: LOYDA WEEKS Room #: 513-P [facility] IN M.R.#: [id number] Admission: 01/11/21 Attend Phys: Manan Beard MD Discharge: 01/18/21 Date of : 49 Report #: [id number] THIS REPORT FOR: cc: Kulwant Prescott MD, Anthony MD Deutch,Jayden Bee. PhD ~ DATE OF SERVICE: 01/13/2021 NEUROBEHAVIORAL STATUS EXAM ATTENDING PHYSICIAN: Manan Beard MD MANAGEMENT LIAISON: Jayden Bonner, PhD CLINICAL PRESENTATION: The patient is a 75-year-old female admitted to the rehabilitation unit for a comprehensive inpatient rehabilitation program. She was initially admitted to the [facility] on 01/02/2021 with memory loss, confusion and word finding deficits. An MRI revealed a subacute left occipital stroke with petechial bleed and chronic frontal encephalomalacia. A CT angiogram revealed 70% stenosis of the left internal carotid artery. The patient underwent a coronary angiography and carotid angiogram. Her assessment on admission to the rehabilitation unit was subacute left occipital CVA, symptomatic carotid artery disease, coronary artery disease with history of stents, hypertension, TIA, chronic frontal encephalomalacia and DJD. A complete description of her medical condition and history can be found in her medical record. Neuropsychological consultation was requested to provide assistance in the assessment of cognitive and emotional status and to provide recommendations and services. Prior to this most recent admission, the patient reported that she was living independently in her own home and driving. However, medical records indicate that she was in an assisted living shelter community. She has had recent losses that include the deaths of 2 sons, one was about over 20 years ago and the other about 2 years ago. Her also about 2 years ago. The second son 6 months prior to her spouse. She has been having assistance provided by a friend of her son's, Fausto and his . The patient is a high school graduate. 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 She worked for the [employer] service prior to her shelter. The patient had one brother that about 10 years ago. TECHNIQUES UTILIZED: Clinical interview, review of medical records, staff consultation and behavioral observation, mini mental status exam 2 standard version, clock drawing and brief verbal fluency assessment. [address] [address] CONSULTATION Name: LOYDA WEEKS Room #: 513-P [facility] IN M.R.#: [id number] Admission: 01/11/21 Attend Phys: Manan Beard MD Discharge: 01/18/21 Date of : 49 Report #: [id number] EXAMINATION FINDINGS: The patient was alert and cooperative with the assessment. She was vague about the reason for her hospitalization and had difficulty in describing her symptoms. Poor insight into cognitive functioning is suggested as she does not report having had any problems. Symptoms reported include difficulty with sleep. She does acknowledge feelings of anxiety and depression with occasional difficulty with memory and word finding. There is no history of alcohol/drug abuse. She is concerned that Fausto her son's friend is wanting to take her out of her home and place her in an assisted living or long-term care environment. Her desire is to return to her home, drive and continue living independently. Her performance on the MMSE 2 brief version was extremely low with a raw score of 7/16. She was 3/3 for initial registration, 2/5 for orientation to time, 2/[address] and 0/3 for immediate recall of 3 items after a brief time delay and distraction. Performance on the MMSE 2 standard version was extremely low with a raw score of 15/30. She was 2/5 for serial 7s, 2/2 for naming, 1/1 for repetition, 3/3 for comprehension. She could read and follow a single command and write a sentence. She had difficulty with copying a simple geometric design. Visual spatial deficits are noted with clock drawing. Brief letter fluency was extremely low with a raw score of 4 and percentile rank of 1. Category fluency was extremely low with a raw score of 16, T score 20 and percentile rank of less than 1. The patient is presenting with deficits in attention/concentration, immediate recall and visual spatial construction. Anxiety is elevated. Deficits in verbal fluency also suggest executive dysfunction. DIAGNOSTIC IMPRESSION: Major neurocognitive disorder (dementia), unspecified, with decreased insight. Adjustment disorder with anxious mood. RECOMMENDATIONS: The patient is presenting with severe neurocognitive deficits that are likely multifactorial with vascular and Alzheimer type features. Additionally, anxiety is also likely to have an effect on her overal functionng. While a followup neuropsychological evaluation will be of benefit to clarify the severity of cognitive deficits, at this timeassistance is necessary for help with management of medication, finances and nutrition. Driving should be [facility] [address] [place] [address] CONSULTATION Name: LOYDA WEEKS Room #: 513-P [facility] M.R.#: [id number] Admission: 01/11/21 Attend Phys: Manan Beard MD Discharge: 01/18/21 Date of : 49 Report #: [id number] discontinued. Followup neuropsych assessment along with driving evaluation will be necessary before return to independent driving. Thank you very much for allowing me to provide the consultation on this patient. <ELECTRONICALLY SIGNED> By: Jayden Bonner, PhD 01/20/21 1806 1235 1629 Jayden Bonner, PhD /nt
== END 2021-01-18 12:45 | disposition home health service (06) | DRG 64 ==
PROVIDERS: Nurse Practitioner; Nurse Practitioner Family; ADMIT Physical Medicine & Rehabilitation; ATTEND Physical Medicine & Rehabilitation
DX: I63.9 Cerebral infarction, unspecified (principal); G93.41 Metabolic encephalopathy; I65.21 Occlusion and stenosis of right carotid artery; I25.10 Atherosclerotic heart disease of native coronary artery without angina pectoris; I10 Essential (primary) hypertension; E78.5 Hyperlipidemia, unspecified; G93.89 Other specified disorders of brain; M17.0 Bilateral primary osteoarthritis of knee; R13.10 Dysphagia, unspecified; F32.9 Major depressive disorder, single episode, unspecified; F41.9 Anxiety disorder, unspecified; E66.01 Morbid (severe) obesity due to excess calories; E55.9 Vitamin D deficiency, unspecified; E53.8 Deficiency of other specified B group vitamins; Z20.822 Contact with and (suspected) exposure to COVID-19; K21.9 Gastro-esophageal reflux disease without esophagitis; E78.00 Pure hypercholesterolemia, unspecified; G47.00 Insomnia, unspecified; N32.81 Overactive bladder; F01.50 Vascular dementia, unspecified severity, without behavioral disturbance, psychotic disturbance, mood disturbance, and anxiety; F43.22 Adjustment disorder with anxiety; Z95.5 Presence of coronary angioplasty implant and graft; Z68.29 Body mass index [BMI] 29.0-29.9, adult; Z88.8 Allergy status to other drugs, medicaments and biological substances; Z90.710 Acquired absence of both cervix and uterus; Z86.718 Personal history of other venous thrombosis and embolism
CPT/HCPCS: 10112

== ENCOUNTER → 2021-02-15 | Outpatient (CLI) | payer OTHER, BC ==
[~2021-02-15] MED LIST changes: +EFFEXOR XR37.5 MG PO; +GABAPENTIN 100100 MG PO; +TRAZODONE HCL50 MG PO; +VOLTAREN GEL 1100 G1 TOP
== END ==
LOC: SJCVCIMAG 09:37
PROVIDERS: ATTEND Nuclear Medicine Nuclear Cardiology
DX: I65.23 Occlusion and stenosis of bilateral carotid arteries (principal); I25.10 Atherosclerotic heart disease of native coronary artery without angina pectoris; I10 Essential (primary) hypertension; E78.00 Pure hypercholesterolemia, unspecified; K21.9 Gastro-esophageal reflux disease without esophagitis; Z90.710 Acquired absence of both cervix and uterus; Z98.890 Other specified postprocedural states; Z79.82 Long term (current) use of aspirin; Z79.899 Other long term (current) drug therapy; Z86.73 Personal history of transient ischemic attack (TIA), and cerebral infarction without residual deficits; Z87.891 Personal history of nicotine dependence; Z82.49 Family history of ischemic heart disease and other diseases of the circulatory system